=== PATIENT | male | born 1955 | race Caucasian/White ===

== ENCOUNTER → 2016-06-30 | Outpatient (REF) | payer OTHER | LOC: LAB 23:00 → EDSTATUS 07-07 10:53 | DX: Z02.83 Encounter for blood-alcohol and blood-drug test (principal) | CPT/HCPCS: 36415 ==

== ENCOUNTER → 2016-06-30 | Outpatient (CLI) | payer SELFPAY | LOC: EMS 22:54 | DX: Z53.20 Procedure and treatment not carried out because of patient's decision for unspecified reasons (principal) ==